=== PATIENT | male | born 1970 | race Two or more races ===

== ENCOUNTER 2018-08-23 11:29 | Emergency (ER) | payer OTHER ==
[~2018-08-23] VITALS: Ht 172.7 cm; Wt 77.1 kg
[~2018-08-23 11:29] MED LIST: AMOXICILLIN500 MG ORAL; BACITRACIN15 GM TOPIC; CIPRO500 MG PO; FLOMAX0.4 MG ORAL; IBUPROFEN600 MG ORAL; TRAMADOL HCL50 MG ORAL
[2018-08-23] MEDS ORDERED: SULFAMETHOXAZO480 ML ORAL (11:37)
--- NOTE | 2018-08-23 11:50 | NUR ---
ED Nurse Note: Patient walked into ED c/o "uncontrollable urination" and left testicle pain. Pt states that he was seen at another hospital a week ago and was prescribed sulfa, found no relief. Pain 8/10 eber. AOx4, VSS. Will cont to monitor.
--- NOTE | 2018-08-23 11:50 | NUR ---
ED Nurse Note: US tech at bedside for imaging.
[2018-08-23 11:51] LABS: APPEARANCE,URINE CLEAR; BILIRUBIN, URINE NEGATIVE (NEGATIVE); COLOR,URINE PALE YELLOW; GLUCOSE, URINE (UA) NEGATIVE (NEGATIVE); KETONES,URINE NEGATIVE (NEGATIVE); LEUKOCYTE ESTERASE ,URINE NEGATIVE (NEGATIVE); NITRITE,URINE NEGATIVE (NEGATIVE); PH,URINE 6 (4.5-8.0); PROTEIN,URINE NEGATIVE (NEGATIVE); UROBILINOGEN,URINE NORMAL MG/DL (0.0-1.0)
--- NOTE | 2018-08-23 12:23 | Diagnostic Imaging Report ---
EXAM: US Scrotum CLINICAL HISTORY: PAIN TECHNIQUE: Real-time ultrasound of the scrotum with color Doppler and image documentation. COMPARISON: Scrotal ultrasound on 04/09/2013 FINDINGS: Right testicle: Measures 5.3 x 2.4 x 3.5 cm. Normal color Doppler flow to the right testicle. Right epididymis: Normal. Left testicle: Measures 4.7 x 1.9 x 3.3 cm. Normal color Doppler flow to the left testicle. The left testicle is more heterogeneous than the right. No focal lesion identified. Left epididymis: Normal. Scrotum: Trace hydroceles. Other: No varicocele. IMPRESSION: 1. No evidence of testicular torsion or hyperemia. 2. Normal epididymides. 3. Left testicle is slightly more heterogeneous than the right, nonspecific. No focal lesion.
[2018-08-23 12:25] VITALS: BP 138/78
--- NOTE | 2018-08-23 12:26 | NUR ---
ER DISCHARGE NOTE: Patient is cleared to be discharged per ERMD, pt is aox4, on room air, with stable vital signs. pt was given dc and prescription instructions, pt was able to verbalize understanding, pt id band removed without complications. pt is able to ambulate with steady gait. pt took all belongings.
--- NOTE | 2018-08-23 13:25 | Emergency Room Report ---
History of Present Illness General Chief Complaint: Male Urogenital Problems Source: Patient Present Illness HPI 48-year-old male presents ED for evaluation. Patient complaining of scrotal pain for last 2 weeks. Also complaining of increased urinary frequency. States he was seen last week at [facility] for similar presentation. States he was prescribed antibiotics which states did not help his symptoms. States pain is a dull, 6 out of 10, nonradiating. Denies any discharge. No other aggravating relieving factors. Denies any other associated symptoms Allergies: Coded Allergies: No Known Allergies (Unverified , 07/04/15) Patient History Past Medical History: none Past Surgical History: none Pertinent Family History: none Social History: Denies: smoking, alcohol use, drug use Immunizations: UTD Reviewed Nursing Documentation: PMH: Agreed; PSxH: Agreed Nursing Documentation-PMH Past Medical History: No History, Except For Review of Systems All Other Systems: negative except mentioned in HPI Physical Exam Vital Signs Date Time Temp Pulse Resp B/P (MAP) Pulse Ox O2 Delivery O2 Flow Rate FiO2 08/23/18 11:32 98.4 74 18 138/78 (98) 98 Room Air Sp02 EP Interpretation: reviewed, normal General Appearance: no apparent distress, alert, GCS 15, non-toxic Head: normocephalic, atraumatic Eyes: bilateral eye normal inspection, bilateral eye PERRL ENT: hearing grossly normal, normal pharynx, no angioedema, normal voice Neck: full range of motion, supple/symm/no masses Respiratory: chest non-tender, lungs clear, normal breath sounds, speaking full sentences Cardiovascular #1: regular rate, rhythm, no edema Cardiovascular #2: 2+ carotid (R), 2+ carotid (L), 2+ radial (R), 2+ radial (L) , 2+ dorsalis pedis (R), 2+ dorsalis pedis (L) Gastrointestinal: normal bowel sounds, non tender, soft, non-distended, no guarding, no rebound Rectal: deferred Genitourinary: no CVA tenderness, other - scrotal tenderness Musculoskeletal: back normal, gait/station normal, normal range of motion, non- tender Neurologic: alert, oriented x3, responsive, motor strength/tone normal, sensory intact, speech normal Psychiatric: judgement/insight normal, memory normal, mood/affect normal, no suicidal/homicidal ideation Reflexes: 3+ bicep (R), 3+ bicep (L), 3+ tricep (R), 3+ tricep (L), 3+ knee (R) , 3+ knee (L) Skin: normal color, no rash, warm/dry, well hydrated Lymphatic: no adenopathy Medical Decision Making Diagnostic Impression: Primary Impression: Testicular pain Additional Impression: Urinary frequency ER Course Hospital Course 48 yo M presents to ED c/o scrotal pain, dysuria Differential diagnoses include: hydrocele, varicocele, epididymitis, testicular torsion Clinical course Patient placed on stretcher. After initial history and physical I ordered UA and scrotal ultrasound. UA-normal Ultrasound shows increased heterogenicity on the left I reviewed discharge papers from [facility]. Patient had ultrasound results there which with similar findings. i explained that this is inconclusive and he will need outpatient urology referral for further evaluation patient later states he's been having these symptoms are not for the last 5 years. When I asked patient why he waited so long to see medical attention he states that he waited for urology referral. I explained that he does not take 5 years received a urology referral and he needs to follow-up with his PMD for this I offered to provide him with alternative outpatient referrals he is getting pushed back from his PMD. safe for discharge with close outpatient followup Diagnosis - testicular pain, urinary frequency Table and discharged to home. Followup with PMD. Return to ED if symptoms recur or worsen Labs Test 08/23/18 11:45 Urine Color Pale yellow Urine Appearance Clear Urine pH 6 (4.5-8.0) Urine Specific [place] 1.010 (1.005-1.035) Urine Protein Negative (NEGATIVE) Urine Glucose (UA) Negative (NEGATIVE) Urine Ketones Negative (NEGATIVE) Urine Blood Negative (NEGATIVE) Urine Nitrite Negative (NEGATIVE) Urine Bilirubin Negative (NEGATIVE) Urine Urobilinogen Normal MG/DL (0.0-1.0) Urine Leukocyte Esterase Negative (NEGATIVE) CT/MRI/US Diagnostic Results CT/MRI/US Diagnostic Results : Imaging Test Ordered: Scrotal US Impression Right testicle: Measures 5.3 x 2.4 x 3.5 cm. Normal color Doppler flow to the right testicle. Right epididymis: Normal. Left testicle: Measures 4.7 x 1.9 x 3.3 cm. Normal color Doppler flow to the left testicle. The left testicle is more heterogeneous than the right. No focal lesion identified. Left epididymis: Normal. Scrotum: Trace hydroceles. Other: No varicocele. Last Vital Signs Date Time Temp Pulse Resp B/P (MAP) Pulse Ox O2 Delivery O2 Flow Rate FiO2 08/23/18 12:25 98.4 72 18 138/78 98 Room Air Status: improved Disposition: HOME, SELF-CARE Condition: Stable Referrals: Lenny Foster [facility] Patient Instructions: Scrotal Swelling Hussain Barnard MD Aug 23, 2018 13:25
== END 2018-08-23 12:29 | disposition home or self-care (01) ==
LOC: EMR 11:49
DX: N50.82 Scrotal pain (principal); R35.0 Frequency of micturition
CPT/HCPCS: 76870; 81003; 99284